=== PATIENT | male | born 1970 | race Caucasian/White ===

== ENCOUNTER 2017-03-29 15:38 | Emergency (ER) | payer OTHER ==
[~2017-03-29] VITALS: Wt 81.6 kg
[~2017-03-29 15:38] MED LIST: BACTRIM DS 8001 TA1 PO; KEFLEX500 MG PO; NKHM; NO DAILY MEDS; PEN-VEE K500 MG PO; VICODIN 5/500 505 MG PO
[2017-03-29 16:05] LABS: BASO # 0.1 10*3/uL (0.0-0.1); BASO % 1.2 % (0.0-1.0); EOS # 0.2 10*3/uL (0.0-0.4); EOS % 2.5 % (1.0-4.0); HEMATOCRIT 49.1 % (42.0-52.0); HEMOGLOBIN 16.9 g/dl (14.0-18.0); LYMPH # 2.2 10*3/uL (1.3-4.4); LYMPH % 35.9 % (27.0-41.0); MEAN CELL VOLUME 88.3 fl (80.0-94.0); MEAN CORPUSCULAR HGB 30.4 pg (27.0-31.0); MEAN CORPUSCULAR HGB CONC 34.4 g/dl (33.0-37.0); MEAN PLATELET VOLUME 10.1 fl (9.6-12.3); MONO # 0.7 10*3/uL (0.1-1.0); MONO % 11.9 % (3.0-9.0); NEUT # 2.9 10*3/uL (2.3-7.9); PLATELET COUNT AUTOMATED 190 10*3/uL (130-400); RED BLOOD COUNT 5.56 10*6/uL (4.50-5.90); RED CELL DISTRI WIDTH 13.6 % (0-14.5)
[2017-03-29 16:21] LABS: ALBUMIN 3.7 gm/dl (3.1-4.5); ALKALINE PHOSPHATASE 74 U/L (45-117); BUN 14 mg/dl (7-24); CHLORIDE 104 mmol/L (98-107); CREATININE 1.26 mg/dL (0.70-1.30); LIPASE 183 U/L (73-393); POTASSIUM 4.1 mmol/L (3.5-5.1); SGOT/AST 52 IU/L (3-35); SGPT/ALT 90 U/L (12-78); SODIUM 141 mmol/L (136-145)
[2017-03-29 17:07] LABS: BILIRUBIN 1+ (NEGATIVE); BLOOD 3+ (NEGATIVE); CLARITY CLOUDY (CLEAR); COLOR YELLOW (YELLOW); GLUCOSE NEGATIVE (NEGATIVE); KETONE TRACE (NEGATIVE); LEUKO ESTERASE TRACE (NEGATIVE); NITRITE NEGATIVE (NEGATIVE); PH 6.5 (5.0-9.0)
[2017-03-29 17:14] LABS: BACTERIA 2+; CALCIUM OXALATE CRYSTALS 1+; EPITHELIAL CELLS 0-2; MUCOUS TRACE; RBC TNTC rbc/hpf (0-2)
[2017-03-29 17:15] LABS: URINE AMPHETAMINES < 1000 (1000ng/ml); URINE BARBITURATES < 200 (200ng/ml); URINE BENZODIAZEPINES < 200 (200ng/ml); URINE CANNABINOIDS (THC) > 50 (50ng/ml); URINE COCAINE > 300 (300ng/ml); URINE METHADONE < 300 (300ng/ml); URINE OPIATES < 300 (300ng/ml)
[2017-03-29 17:16] LABS: URINE PHENCYCLIDINE < 25 (25ng/ml)
== END 2017-03-29 18:09 | disposition left against medical advice (07) ==
LOC: ED 15:38
PROVIDERS: Physician Assistant
DX: R10.30 Lower abdominal pain, unspecified (principal); F17.200 Nicotine dependence, unspecified, uncomplicated

== ENCOUNTER 2021-11-16 10:48 | Emergency (ER) | payer OTHER | END 2021-11-16 13:36 | LOC: ED 10:48 | DX: M54.2 Cervicalgia (principal); M54.50 Low back pain, unspecified; R51.9 Headache, unspecified; V28.4XXA Motorcycle driver injured in noncollision transport accident in traffic accident, initial encounter; Y93.I9 Activity, other involving external motion; Y92.488 Other paved roadways as the place of occurrence of the external cause; Y99.8 Other external cause status ==

== ENCOUNTER 2022-02-09 01:10 | Emergency (ER) | payer OTHER | END 2022-02-09 02:04 | disposition left against medical advice (07) | LOC: ED 01:10 | DX: Z53.21 Procedure and treatment not carried out due to patient leaving prior to being seen by health care provider (principal) ==

== ENCOUNTER 2022-02-18 00:26 | Emergency (ER) | payer OTHER ==
[~2022-02-18] VITALS: Ht 177.8 cm; Wt 69.6 kg
[2022-02-18] MEDS ORDERED: NAPROXEN250 MG PO (00:51)
== END 2022-02-18 01:06 | disposition home or self-care (01) ==
LOC: ED 00:26
DX: S80.12XA Contusion of left lower leg, initial encounter (principal); V86.99XA Unspecified occupant of other special all-terrain or other off-road motor vehicle injured in nontraffic accident, initial encounter; Y93.89 Activity, other specified; Y92.89 Other specified places as the place of occurrence of the external cause; Y99.8 Other external cause status

== ENCOUNTER 2022-09-03 19:24 | Emergency (ER) | payer OTHER ==
[~2022-09-03] VITALS: Ht 175.2 cm; Wt 72.6 kg
[~2022-09-03 19:24] MED LIST changes: +NAPROXEN250 MG PO
[2022-09-03 20:51] LABS: BASO % 0.5 % (0.0-1.0); EOS # 0.1 10*3/uL (0.0-0.4); EOS % 0.6 % (1.0-4.0); HEMATOCRIT 45.1 % (42.0-52.0); LYMPH % 11.5 % (27.0-41.0); MEAN CORPUSCULAR HGB 29.8 pg (27.0-31.0); MEAN CORPUSCULAR HGB CONC 33.5 g/dl (33.0-37.0); MEAN PLATELET VOLUME 9.4 fl (9.6-12.3); MONO # 0.8 10*3/uL (0.1-1.0); MONO % 9.7 % (3.0-9.0); NEUT # 6.6 10*3/uL (2.3-7.9); NEUT % 77.5 % (47.0-73.0); PLATELET COUNT AUTOMATED 177 10*3/uL (130-400); RED BLOOD COUNT 5.07 10*6/uL (4.50-5.90); RED CELL DISTRI WIDTH 13.9 % (0-14.5); WHITE BLOOD COUNT 8.6 10*3/uL (4.8-10.8)
[2022-09-03 21:12] LABS: BILIRUBIN Negative (Negative); BLOOD Negative (Negative); CLARITY Clear (Clear); COLOR Yellow (Yellow); GLUCOSE Negative (Negative); KETONE Negative (Negative); LEUKO ESTERASE Negative (Negative); NITRITE Negative (Negative); SPECIFIC GRAVITY 1.025 (1.001-1.030)
[2022-09-03 21:14] LABS: ALKALINE PHOSPHATASE 99 U/L (46-116); BUN 14 mg/dl (9-23); CHLORIDE 107 mmol/L (98-107); LIPASE 39 U/L (12-53); POTASSIUM 4.4 mmol/L (3.4-5.1); SGPT/ALT 61 U/L (10-49); TOTAL PROTEIN 7.6 gm/dL (6.0-8.0)
[2022-09-03 21:20] LABS: EPITHELIAL CELLS 0-2; RBC 0-2 rbc/hpf (0-2); WBC 0-2 wbc/hpf (0-5)
[2022-09-03 21:21] LABS: BACTERIA TRACE
== END 2022-09-03 21:50 | disposition left against medical advice (07) ==
LOC: ED 19:24
PROVIDERS: Family Medicine
DX: R10.11 Right upper quadrant pain (principal); R10.31 Right lower quadrant pain; R74.01 Elevation of levels of liver transaminase levels; Z87.442 Personal history of urinary calculi

== ENCOUNTER 2022-09-29 15:33 | Emergency (ER) | payer OTHER ==
[~2022-09-29] VITALS: Ht 175.2 cm; Wt 72.6 kg
[2022-09-29] MEDS ORDERED: HYDROXYZINE HCL25 MG PO (16:10)
[2022-09-29] MEDS ORDERED: PREDNISONE10 M1 PO (16:10)
== END 2022-09-29 16:20 | disposition home or self-care (01) ==
LOC: ED 15:33
DX: L25.5 Unspecified contact dermatitis due to plants, except food (principal)

== ENCOUNTER 2022-12-14 21:34 | Emergency (ER) | payer OTHER ==
[~2022-12-14] VITALS: Ht 167.6 cm; Wt 68.0 kg
[~2022-12-14 21:34] MED LIST changes: +HYDROXYZINE HCL25 MG PO; +PREDNISONE10 M1 PO
== END 2022-12-14 23:12 ==
LOC: ED 21:34
DX: M54.9 Dorsalgia, unspecified (principal); M25.559 Pain in unspecified hip; F17.200 Nicotine dependence, unspecified, uncomplicated